=== PATIENT | female | born 1995 | race Caucasian/White ===

== ENCOUNTER 2017-06-09 22:30 | Emergency (ER) | payer SELFPAY ==
--- NOTE | 2017-06-09 23:10 | Emergency Department Record ---
History of Present Illness - General Chief Complaint: Wound, check Stated Complaint: OPEN C SECTION SCAR FROM 05/12 Time Seen by Provider: 06/09/17 23:04 Source: Patient Mode of arrival: Ambulatory Limitations: No limitations - History of Present Illness Initial Comments: 22 yo female presents to ED with a CC of "a string hanging out from my C- section scar 1 month ago". Patient reports her wound has been present for several days. Patient reports mild drainage from the wound, denies fevers, chills, or recent illness. Patient denies recent injury to the area, and denies health problems at her baseline. Patient does not remember who her surgeon is from [facility]. Complaint: Wound re-check Onset/Timin -: Days(s) Returns Today for: Wound recheck Symptoms Since Prior Visit: Worsening pain, Other Associated Symptoms: None - Related Data Home Medications Medication Instructions Recorded Confirmed Last Taken Ibuprofen [Ibuprofen] 1 tab PO DAILY 06/09/17 06/09/17 Unknown Levothyroxine Sodium [Synthroid] 1 tab PO DAILY 06/09/17 06/09/17 Unknown Oxycodone HCl/Acetaminophen 1 tab PO ASDIR 06/09/17 06/09/17 Unknown [Percocet 5mg/325mg] Travel Screening - Travel/Exposure Within Last 30 Days Have you traveled within the last 30 days?: No - Travel/Exposure Within Last Year Have you traveled outside the [place] in the last year?: No - Additonal Travel Details Have you been exposed to anyone with a communicable illness?: No - Travel Symptoms Symptom Screening: None Review of Systems Constitutional: Denies: Chills, Fever, Malaise, Night sweats Eyes: Denies: Eye discharge, Eye pain ENT: Denies: Congestion, Ear pain, Epistaxis Respiratory: Denies: Cough, Dyspnea Cardiovascular: Denies: Chest pain, Dyspnea on exertion Endocrine: Denies: Fatigue, Heat or cold intolerance Gastrointestinal: Denies: Abdominal pain, Nausea, Vomiting Genitourinary: Denies: Incontinence, Retention Musculoskeletal: Denies: Arthralgia, Back pain, Gout, Joint swelling Skin: Reports: Other (wound dehiscense). Denies: Bruising, Change in color Neurological: Denies: Abnormal gait, Confusion, Headache, Seizure Psychiatric: Denies: Anxiety Hematological/Lymphatic: Denies: Anemia, Blood Clots Past Medical History - SOCIAL HISTORY Smoking Status: Never smoker Alcohol Use: None Drug Use: None - RESPIRATORY Hx Respiratory Disorders: No - CARDIOVASCULAR Hx Cardio Disorders: No - NEURO Hx Neuro Disorders: No - GI Hx GI Disorders: No - Hx Genitourinary Disorders: No - ENDOCRINE Hx Endocrine Disorders: Yes Hx Thyroid Disease: Yes (hypo) - MUSCULOSKELETAL Hx Musculoskeletal Disorders: No - PSYCH Hx Psych Problems: No - HEMATOLOGY/ONCOLOGY Hx Hematology/Oncology Disorders: No Family Medical History Any Significant Family History?: No Physical Exam - General General Appearance: Alert, Oriented x3, Cooperative, No acute distress Limitations: No limitations - Head Head exam: Atraumatic, Normocephalic, Normal inspection Head exam detail: negative: Abrasion, Contusion, Cage's sign, General tenderness, Hematoma, Laceration - Eye Eye exam: Normal appearance. negative: Conjunctival injection, Periorbital swelling, Periorbital tenderness, Scleral icterus - ENT Ear exam: negative: Auricular hematoma, Auricular trauma Nasal Exam: negative: Active bleeding, Discharge, Dried blood, Foreign body Mouth exam: negative: Drooling, Laceration, Muffled voice, Tongue elevation - Neck Neck exam: Normal inspection. negative: Meningismus, Tenderness - Respiratory Respiratory exam: Normal lung sounds bilaterally. negative: Rales, Respiratory distress, Rhonchi, Stridor - Cardiovascular Cardiovascular Exam: Regular rate, Normal rhythm, Normal heart sounds - GI/Abdominal GI/Abdominal exam: Soft, Other (0.3 cm area of wound dehiscence with suture extravasating from the wound, no erythema, no draiange, no signs of infection on examination). negative: Rebound, Rigid, Tenderness - Rectal Rectal exam: Deferred - exam: Deferred - Extremities Extremities exam: Normal inspection. negative: Calf tenderness, Pedal edema, Tenderness - Back Back exam: Denies: CVA tenderness (R), CVA tenderness (L) - Neurological Neurological exam: Alert, Normal gait, Oriented X3 - Psychiatric Psychiatric exam: Normal affect, Normal mood - Skin Skin exam: Normal color. negative: Abrasion Type of lesion: negative: abrasion Course Vital Signs 06/09/17 22:59 Temperature 99.1 F Pulse Rate 64 Respiratory 20 Rate Blood Pressure 137/75 Pulse Ox 99 - Reevaluation(s) Reevaluation #1: 06/09/17 23:10 On examination, there is no sign of infection, small amount of suture extruding from the wound. Suture was trimmed, and wound dressing was placed. No areas of infection are present, and the patient was asked to call her surgeon tomorrow for further evaluation of her wound. Antibiotics are not felt to be necessary based on examination. 06/09/17 23:12 Disposition Disposition: Discharge Clinical Impression: Wound dehiscence Disposition: Home, Self-Care Condition: (2) Stable Instructions: Wound Dehiscence (ED) Additional Instructions: Return to ED if your symptoms worsen or if you have any concerns. Follow-up with your OB surgeon in 1-3 days as directed. Forms: Patient Portal Access Time of Disposition: 23:12 Quality - Quality Measures Quality Measures: N/A - Blood Pressure Screening Blood Pressure Classification: Pre-Hypertensive BP Reading Systolic Measurement: 137 Diastolic Measurement: 75 Screening for High Blood Pressure: < Pre-Hypertensive BP, F/U Documented > [ [id number]] Pre-Hypertensive Follow-up Interventions: Referral to alternative/primary care provider.
== END 2017-06-09 23:23 | disposition home or self-care (01) ==
LOC: ER 22:54
DX: O90.0 Disruption of cesarean delivery wound (principal)
CPT/HCPCS: 99283